=== PATIENT | male | born 1980 | race Caucasian/White ===

== ENCOUNTER 2017-12-06 06:23 | Emergency (ER) | payer BC ==
[2017-12-06] MEDS ORDERED: 0.9 % SODIUM CHLORIDE 1,000 ML IV SCH (07:00)
[2017-12-06 07:13] LABS: eGFR (Non-African) > 60
[2017-12-06] MEDS ORDERED: 0.9 % SODIUM CHLORIDE 1,000 ML IV ONE (07:15)
[2017-12-06] MEDS ORDERED: DIPH,PERTUSS(ACELL),TET VAC/PF 0.5 ML DISP.SYRIN IM ONE (07:26)
--- NOTE | 2017-12-06 08:08 | ED Physician Documentation ---
Head Injury - HISTORIAN Historian: patient - HPI Stated Complaint: Seizure with fall and head laceration Chief Complaint: Head Injury Additional Information: Known seizure patient who has a seizure while at work, struck his head s ustaining lacerations. Does not remember incident. Onset: just prior to arrival Where: work Timing: still present Context: fall Severity: moderate Loss of Consciousness: dazed - ROS CONST: no problems CVS/RESP: none EYES/ENT: none MS/SKIN/LYMPH: denies: weakness, numbness, neck pain, back pain GI/: denies: nausea, vomiting, abdominal pain, problems urinating - PAST HX Past History: other (seizure disorder, hypothyroidism) Immunizations: tetanus Allergies/Adverse Reactions: Allergies Allergy/AdvReac Type Severity Reaction Status Date / Time No Known Allergies Allergy Unverified 12/06/17 07:00 Home Medications: Ambulatory Orders Medication Instructions Recorded Levetiracetam [Keppra] 750 mg PO BID 12/06/17 Levothyroxine Sodium [Synthroid] 75 mcg PO DAILY 12/06/17 - SOCIAL HX Smoking History: non-smoker Alcohol Use: none Drug Use: none - FAMILY HX Family History: no significant history - VITAL SIGNS Vital Signs: Vital Signs Temp Pulse Resp BP Pulse Ox 97.6 F 100 H 16 138/76 96 12/06/17 06:25 12/06/17 06:25 12/06/17 06:25 12/06/17 06:25 12/06/17 06:25 - REVIEWED ASSESSMENTS Nursing Assessment Reviewed: Yes Vitals Reviewed: Yes Procedures Wound Location: head Wound Length: 3.5 cm and 1.5 cm respectively Wound's Depth, Shape: into muscle, linear Wound Explored: clean Betadine Prep?: No (cleaned with H2O2, sure clens) Anesthesia: Other (none) Wound Debrided: hair shaved Wound Repaired With: aniya (5 and 2 respectively) Progress - Results/Orders Results/Orders: cbc, cmp, ua, uds, etoh, pt/ptt/inr ordered - Progress Progress: Pt. has excellent assisted memory. Short term memory and mathematical skills slightly impaired immediately after seizure which improves with time. Critical Care Note - Critical Care Note Total Time (mins): 0 ED Results Lab/Radiology - Lab Results Lab Results: Lab Results 12/06/17 12/06/17 12/06/17 Unknown Unknown Unknown WBC Comment 8.63 thou/uL thou/uL (4.00-12.00) RBC 4.70 mil/uL mil/uL (3.80-5.80) Hemoglobin (Send Out) 13.6 g/dL g/dL (12.0-18.0) Hct (Send Out) 40.8 % % (37.0-53.0) MCV (Send Out) 86.9 fL fL (80.0-100.0) MCH 28.9 pg pg (28.0-34.0) MCHC (Send Out) 33.3 g/dL g/dL (30.0-36.0) RDW Coeff of Diego 12.6 % % (11.3-14.7) Plt Count 398 thou/uL thou/uL (130-400) Absolute Lymphs (auto) 1.86 thou/uL thou/uL (0.60-4.00) Absolute Monos (auto) 0.47 thou/uL thou/uL (0.00-0.90) Absolute Basos (auto) 0.06 thou/uL thou/uL (0.00-0.50) Neutrophils % 67.4 % % (39.0-79.0) Absolute Neutrophils 5.82 thou/uL thou/uL (1.50-7.70) Lymphocytes 21.6 % % (16.0-50.0) Monocytes 5.4 % % (0.0-11.0) Absolute Eosinophils 0.42 thou/uL thou/uL (0.00-0.60) Basophilia % 0.7 % % (0.0-1.5) Eosinophil Count 4.9 % % (0.0-6.8) PT INR APTT Sodium Potassium Chloride Carbon Dioxide BUN Creatinine Estimated Creat Clear Est GFR ( Amer) Est GFR (Non-Af Amer) Glucose Calcium Total Bilirubin AST ALT Alkaline Phosphatase Total Protein Albumin Urine Color Urine Appearance Urine pH Ur Specific [place] Urine Protein Urine Ketones Urine Occult Blood Urine Nitrite Urine Bilirubin Urine Urobilinogen Ur Leukocyte Esterase Urine Glucose Opiates Screen Negative ng/mL ng/mL (<300) Oxycodone Screen Negative ng/mL ng/mL (<100) Methadone Screen Negative ng/mL ng/mL (<200) Ur Barbiturates Screen Negative ng.mL ng.mL (<200) Tricyclic Antidepress Negative ng/mL ng/mL (<300) Phencyclidine Screen Negative ng/mL ng/mL (< 25) Amphetamines Screen Negative ng/mL ng/mL (<500) U Methamphetamines Scrn Negative ng/mL ng/mL (<500) MDMA Negative ng/mL ng/mL (<500) Benzodiazepines Screen Negative ng/mL ng/mL (<150) Urine Cocaine Screen Negative ng/mL ng/mL (<150) U Cannabinoids Screen Negative ng/mL ng/mL (< 50) Ethyl Alcohol < 10.0 mg/dL mg/dL (0.0-10.0) 12/06/17 12/06/17 12/06/17 Unknown Unknown 07:50 WBC Comment RBC Hemoglobin (Send Out) Hct (Send Out) MCV (Send Out) MCH MCHC (Send Out) RDW Coeff of Diego Plt Count Absolute Lymphs (auto) Absolute Monos (auto) Absolute Basos (auto) Neutrophils % Absolute Neutrophils Lymphocytes Monocytes Absolute Eosinophils Basophilia % Eosinophil Count PT 10.7 Seconds Seconds (9.4-11.6) INR 1.02 (0.9-1.2) APTT 26.3 Seconds Seconds (24.5-32.8) Sodium 135 mmol/L L mmol/L (136-145) Potassium 4.1 mmol/L mmol/L (3.5-5.1) Chloride 97 mmol/L L mmol/L (98-107) Carbon Dioxide 27 mmol/L mmol/L (22-30) BUN 11 mg/dL mg/dL (9-20) Creatinine 0.80 mg/dL mg/dL (0.66-1.25) Estimated Creat Clear 146 Est GFR ( Amer) > 60 (60 - ) Est GFR (Non-Af Amer) > 60 (60 - ) Glucose 96 mg/dL mg/dL (74-106) Calcium 8.4 mg/dL mg/dL (8.4-10.2) Total Bilirubin 0.4 mg/dL mg/dL (0.2-1.3) AST 33 U/L U/L (15-46) ALT 60 U/L U/L (13-69) Alkaline Phosphatase 135 U/L H U/L (38-126) Total Protein 7.2 g/dL g/dL (6.3-8.2) Albumin 3.9 g/dL g/dL (3.5-5.0) Urine Color Yellow (YELLOW) Urine Appearance Clear (CLEAR) Urine pH 7.0 (5.0 - 8.0) Ur Specific [place] 1.020 (1.010-1.030) Urine Protein Negative mg/dL mg/dL (NEGATIVE) Urine Ketones Negative mg/dL mg/dL (NEGATIVE) Urine Occult Blood Negative (NEGATIVE) Urine Nitrite Negative (NEGATIVE) Urine Bilirubin Negative (NEGATIVE) Urine Urobilinogen 0.2 Eu Eu (0.2-1.0) Ur Leukocyte Esterase Negative (NEGATIVE) Urine Glucose Negative mg/dL mg/dL (NEGATIVE) Opiates Screen Oxycodone Screen Methadone Screen Ur Barbiturates Screen Tricyclic Antidepress Phencyclidine Screen Amphetamines Screen U Methamphetamines Scrn MDMA Benzodiazepines Screen Urine Cocaine Screen U Cannabinoids Screen Ethyl Alcohol - Radiology Radiology Impressions: ct head and cervical spine neg for karina abnormalty - Orders Orders: ED Orders Category Date Time Status Place IV Lock 1T Care 12/06/17 06:[address] BRAIN W/O CONTRAST Stat Exams 12/06/[address] C-SPINE W/O CONTRAST Stat Exams 12/06/17 Taken ALCOHOL MEDICAL USE ONLY Stat Lab 12/06/17 Completed CBC REF Stat Lab 12/06/17 Completed CMP Stat Lab 12/06/17 Completed DRUG SCREEN URINE MEDICAL ONLY Routine Lab 12/06/17 Completed LEVETIRACETAM(KEPPRA) LEVEL Routine Lab 12/06/17 Received PT-INR Stat Lab 12/06/17 Completed PTT Stat Lab 12/06/17 Completed UA MACRO DIP ONLY Stat Lab 12/06/17 07:50 Completed 0.9 % Sodium Chloride [Normal Saline] 1,000 ml Med 12/06/17 07:00 Ordered IV .Q1H Diph,Pertuss(Acell),Tet Vac/Pf [Adacel] Med 12/06/17 07:26 Discontinued 0.5 ml IM .ONCE ONE Head Injury Physical Exam - Physical Exam General Appearance: alert, mild distress Head: trauma (to occipital area). No: raccoon eyes, Acosta's sign Neck: non-tender, painless ROM, trachea midline Nexus Criteria: Nexus criteria neg Eyes: PALAK, EOMI, lids & conjunct. nml ENT: nml external inspection, pharynx nml Neuro: alert, cooperative, interactive, mood/affect nml, other (oriented to person). No: seizing Cranial: nml as tested, no evidence of acute CVA. No: facial droop, hearing deficit, tongue deviation to right, tongue deviation to left, dysarthria, fast component to left, fast component to right, facial palsy, sensory deficit, numbness Cerebellar: nml as tested Sensorimotor: motor nml, sensation nml, DTR's nml. No: weakness, hemiparesis, hemiplegia Resp/CVS: chest non-tender, breath sounds nml, heart sounds nml, no resp. distress, lungs clear, reg. rate & rhythm Abdomen: non-tender, no organomegaly, nml bowel sounds Back: non-tender, painless ROM. No: vertebral point-tendernes, CVA tenderness Skin: warm/dry, other (2 linear lacerations occipital portion of scalp, 1.5 cm and 3.5 cm) Extremities: atraumatic, nml ROM, gait nml - Keshav Coma Score Coma Scale Eye Opening: Spontaneous Coma Scale Verbal: Oriented Coma Scale Motor: Obeys Commands Discharge Clincal Impression: Seizure Scalp laceration Qualifiers: Encounter type: initial encounter Qualified Code(s): S01.01XA - Laceration without foreign body of scalp, initial encounter Referrals: Primary Doctor,No [Primary Care Provider] - 2 Days Comments: Discharge pt. home with Tylenol PRN pain, rest, follow up with neurologist, wound care to incluse soap and water clean daily and ELIER to staple site bid, aniya out in 10 days Condition: Stable Disposition: 01 HOME, SELF-CARE Decision to Admit: NO Decision Time: 09:30
[2017-12-06 08:21] LABS: BASO % 0.7 % (0.0-1.5); EOS % 4.9 % (0.0-6.8); LYMPH ABS # 1.86 thou/uL (0.60-4.00); MCH. 28.9 pg (28.0-34.0); MCV 86.9 fL (80.0-100.0); MONOCYTE % 5.4 % (0.0-11.0); MONOCYTE ABS # 0.47 thou/uL (0.00-0.90); PLATELET COUNT 398 thou/uL (130-400)
[2017-12-06 09:11] LABS: CANNABINOIDS NEGATIVE ng/mL (< 50); METHYLENEDIOXYMETHAMPHETAMINE NEGATIVE ng/mL (<500)
[2017-12-06 09:14] LABS: APPEARANCE,URINE CLEAR (CLEAR); COLOR,URINE YELLOW (YELLOW); OCCULT BLOOD,URINE NEGATIVE (NEGATIVE); UROBILINOGEN URINE 0.2 Eu (0.2-1.0)
[2017-12-06 10:13] VITALS: BP 115/66
--- NOTE | 2017-12-06 21:38 | Diagnostic Imaging Report ---
WILIAN MADERA [facility] [id number] [facility] [address] [place], [place]. [address] Report Submission Date: Dec 06, 2017 11:09:26 AM CDT Patient Study Name: SHENG ELLIS Date: Dec 06, 2017 10:48:04 AM CDT Modality Type: CT Gender: M Description: CT BRAIN W/O CONTRAST : 80 Institution: [facility] Physician: WILIAN MADERA Head CT without contrast History: Seizure and fall Technique: Axial images were obtained from the skullbase to the vertex without IV contrast. Findings: The ventricular system is normal in size and configuration. There is no positive mass effect or intra/extra-axial hemorrhage. However, there is generalized soft tissue swelling with associated soft tissue air involving the left parietal scalp consistent with scalp contusion and laceration. The adjacent calvarium is intact. Paranasal sinuses and mastoid air cells are clear. Impression: There is soft tissue swelling and soft tissue air of the left parietal scalp consistent with soft tissue contusion and laceration in this patient who is status post fall. No intracranial abnormality. Electronically signed on Dec 06, 2017 11:09:26 AM CDT by: Arabella DIAMOND
--- NOTE | 2017-12-06 21:39 | Diagnostic Imaging Report ---
WILIAN MADERA [facility] [id number] [facility] [address] [place], [place]. [address] Report Submission Date: Dec 06, 2017 11:13:39 AM CDT Patient Study Name: SHENG ELLIS Date: Dec 06, 2017 10:50:05 AM CDT Modality Type: CT Gender: M Description: CT C-SPINE W/O CONTRAS : 80 Institution: [facility] Physician: WILIAN MADERA CT cervical spine History: Status post seizure. Status post fall Technique: Helically acquired images were obtained through the cervical spine. Sagittal and coronal reconstructions were performed. Findings: The dens is intact. The lateral masses of C1 and 2 are aligned. Vertebral body height and intervertebral disc space height is maintained. There is no evidence for acute fracture or dislocation. The central canal is widely patent. There is abnormal patchy parenchymal density at the lung apices, nonspecific but possibly indicating pneumonia. Impression: No evidence for acute fracture or dislocation of the cervical spine. At the visualized lung apices, there is abnormal patchy parenchymal density which is nonspecific but could indicate pneumonia. Consider chest radiograph. Electronically signed on Dec 06, 2017 11:13:39 AM CDT by: Arabella DIAMOND
== END 2017-12-06 09:52 | disposition home or self-care (01) ==
LOC: ED 06:23
DX: S01.01XA Laceration without foreign body of scalp, initial encounter (principal); W19.XXXA Unspecified fall, initial encounter; Y92.9 Unspecified place or not applicable; Y93.9 Activity, unspecified; Y99.9 Unspecified external cause status; G40.909 Epilepsy, unspecified, not intractable, without status epilepticus
CPT/HCPCS: 70450; 72125; 80053; 80177; 80320; 80377; 81002; 85025; 85610; 85730; 90715; J7030; 12002; 90471; 96365; G0480; G0481

== ENCOUNTER 2017-12-06 10:21 | Inpatient (IN) | payer BC ==
[2017-12-06] MEDS ORDERED: LORazepam 2 MG/ML VIAL IVP ONE (10:31)
[2017-12-06] MEDS ORDERED: ONDANSETRON HCL/PF 4 MG/ 2ML VIAL IVP ONE (12:14)
[2017-12-06] MEDS: 0.9 % SODIUM CHLORIDE 1,000 ML IV SCH ×3 (13:38→23:33)
--- NOTE | 2017-12-06 14:25 | History and Physical Report ---
History of Present Illnes - History of Present Illness Reason for Visit: seizures History of Present Illness: Patient is a 37-year-old white male with a known seizure history since 18 years of age. Patient stated usually he'll have 1 to 2 seizures a year or even less than that. Patient has gone three years without any seizures at one time. Patient was working today when he had a seizure fell down and sustained some laceration to his scalp. Patient was seen in the ED had scalp lacerations s tapled. Patient was subsequently released. Patient then went back to work and had a another seizure and return to the ED and was subsequently admitted for further evaluation. Patient stated he had skipped 1 to 2 doses of his anticonvulsants yesterday. Patient is also been tired and had not had as much sleep as he feels that he needs. Patient does complain of a mild headache associated with head trauma. Patient has had two CT scans did not show any specific abnormalities. Patient denies any visual acuity changes. Patient denies any focal no sensory or neuromotor deficit. - Past Medical History [employer]: Seizure Endocrine: Hypothyroidism - Past Surgical History Past Surgical History: None - Past Social History Smoke: No Alcohol: None Lives: With Family Domestic Violence: Negative - Health Maintenance Health Maintenance: Tetanus (today -06 DEC 2017). denies: Influenza Vaccine, Pneumococcal Vaccine Influenza Vaccine: No Pneumonia Vaccine: No Resuscitation Status: Resusciation Status Resuscitation Status Full Code - Unable to Obtain History Unable to Obtain: No Review of Systems - Review of Systems Constitutional: Weakness (postictal). negative: Fever, Chills, Sweats Eyes: negative: pain, vision change ENT: negative: Ear Pain, Nose Pain, Nose Discharge, Nose Congestion, Mouth Pain, Mouth Swelling, Throat Pain Respiratory: negative: Cough, Shortness of Breath, Hemoptysis, SOB with Excertion, Pleuritic Pain, Wheezing Cardiovascular: negative: Chest Pain, Palpitations, Orthopnea, Paroxysmal Noc. Dyspnea, Edema, Light Headedness Gastrointestinal: negative: Nausea, Vomiting, Abdominal Pain, Diarrhea, Constipation, Melena, Hematochezia Genitourinary: Deferred. negative: Dysuria, Frequency, Incontinence, Hematuria Musculoskeletal: negative: Neck Pain, Shoulder Pain, Back Pain, Hand Pain, Leg Pain Skin: negative: Rash Neurological: Confusion (mild postictal), Seizures. negative: Weakness, Numbness, Incoordination, Change in Speech - Medications/Allergies Allergies/Adverse Reactions: Allergies Allergy/AdvReac Type Severity Reaction Status Date / Time No Known Allergies Allergy Verified 12/06/17 11:13 Current Inpatient Medications: Current Inpatient Medications Enoxaparin Sodium (Lovenox) 30 mg SQ QD [facility] Stop: 12/19/17 15:01 Sodium Chloride (Normal Saline) 1,000 mls @ 125 mls/hr IV Q8H [facility] Last Admin: 12/06/17 13:38 Dose: 125 mls/hr Levetiracetam (Keppra) 500 mg PO TID [facility] Levothyroxine Sodium (Synthroid) 75 mcg PO 0700 [facility] Exam - Exam Vital Signs: Vital Signs (72 hours) 12/06/17 12/06/17 12/06/17 09:52 10:21 11:26 Pulse Rate 66 Pulse Rate [ 77 Left Pulse ox] Respiratory 16 Rate Blood Pressure 115/66 Blood Pressure 115/66 107/50 [Left Arm] O2 Sat by Pulse 94 96 Oximetry 12/06/17 13:26 Pulse Rate 62 Pulse Rate [ Left Pulse ox] Respiratory Rate Blood Pressure Blood Pressure [Left Arm] O2 Sat by Pulse 95 Oximetry General: Alert, Oriented to Person, Oriented to Place, Oriented to Time, Cooperative, No acute distress HEENT: Atraumatic, PERRLA, EOMI, Mouth Mucous membr. moist/[place], Nose Mucous membr. moist/[place], Dentition Normal Neck: Normal Range of Motion Carotids: WNL Thyroid: WNL Lungs: Clear to auscultation, Normal air movement, Speaks full Sentences. No: Respiratory Distress, Wheezes, Rales, Rhonchi Cardiovascular: Regular rate, Normal S1, Normal S2, No murmurs Abdomen: Normal bowel sounds, Soft, No tenderness, No hepatospenomegaly, No masses Integumentary: Normal, [place], Warm, Dry, Jaundiced Extremities: No clubbing, No cyanosis, No edema, Normal pulses, No tenderness/swelling Neurological: Normal gait, Normal speech, Strength Equal Bilat, Normal tone, Sensation intact, Cranial nerves 3-12 NL, Reflexes 2+ Psych/Mental Status: Mental status NL, Mood NL, Appropriate Affect, Intact Judgment Assessment/Plan - Assessment/Plan (1) Seizure disorder Status: Acute Current Visit: Yes Assessment: continue with present anticonvulsants , monitor for further seizures (2) Hypothyroidism Status: Acute Current Visit: Yes Qualifiers: Hypothyroidism type: unspecified Qualified Code(s): E03.9 - Hypothyroidism, unspecified Assessment: Continue current levothyroxine dose. (3) Scalp laceration Status: Acute Current Visit: No Qualifiers: Encounter type: initial encounter Qualified Code(s): S01.01XA - Laceration without foreign body of scalp, initial encounter Assessment: clsoed with aniya VTE Assessment - RISK FACTOR SCORE VTE RISK FACTOR SCORES: ANTICIPATED BED CONFINEMENT OR IMMOBILIZATION > 24 HOURS - RISK VTE LOW RISK: SCORE OF 1 OR LESS (RISK PROXIMAL DVT 0.4%) NO PROPHYLAXIS NEEDED
[2017-12-06] MEDS ORDERED: LORazepam 2 MG/ML VIAL IVP PRN (14:26)
[2017-12-06] MEDS ORDERED: ENOXAPARIN SODIUM 30 MG/0.3 ML DISP.SYRIN SQ SCH (15:00)
[2017-12-06 15:05] VITALS: BMI 28.3
--- NOTE | 2017-12-06 16:02 | ED Physician Documentation ---
Seizure - HISTORIAN Historian: patient, spouse - HPI Stated Complaint: s/p siezure with fall (has occurred once today and seen in ER) Chief Complaint: Seizure Additional Information: Pt. just released from ER for seizure and head injury. Returned to work to turn in paperwork and had another seizure and fell again re-injuring head. Timing/Onset/Duration: single episode Last known Well Date: 12/06/17 Last Known Well Time: 05:00 Last known Well Code/Unknown Code: Unknown Witnessed By: bystander Preceding Symptoms: missed seizure meds (yesterday), other (stress) Activity Prior to Seizure: post ictal from first seizure Character of Seizure(s): unresponsiveness, "shaking all over". denies: incontinence of urine, incontinence of stool Postictal Symptoms: other (fatigued) Location of Injury: head Further Comments: no - ROS NEURO/PSYCH: headache EYES/ENT: none CVS/RESP: none GI/: denies: adominal pain, nausea, vomiting, diarrhea, black stools, problems urinating MS/SKIN/LYMPH: other (head pain n area of injury) - PAST HX Previous seizure/seizure disorder: long-standing Etiology: idiopathic Other History: other (hypothyroidism) Surgeries/Procedures: none Immunizations: referred to PCP Allergies/Adverse Reactions: Allergies Allergy/AdvReac Type Severity Reaction Status Date / Time No Known Allergies Allergy Verified 12/06/17 11:13 Home Medications: Ambulatory Orders Medication Instructions Recorded Levetiracetam [Keppra] 750 mg PO BID 12/06/17 Levothyroxine Sodium [Synthroid] 75 mcg PO DAILY 12/06/17 - SOCIAL HX Smoking History: other (unknown) Alcohol Use: other (unknown) Drug Use: other (unknwn) - FAMILY HX Family History: none - VITAL SIGNS Vital Signs: Vital Signs Temp Pulse Resp BP Pulse Ox 99.4 F 75 16 117/49 95 12/06/17 13:14 12/06/17 15:28 12/06/17 13:14 12/06/17 13:14 12/06/17 13:26 - REVIEWED ASSESSMENTS Nursing Assessment Reviewed: Yes Vitals Reviewed: Yes Progress - Results/Orders Results/Orders: ct head, ct c-spine ordered - Progress Progress: pt. stablized in ER, lacerations stapled, given 1 mg ativan ivp and NS at 125 cc/hr Critical Care Note - Critical Care Note Total Time (mins): 0 ED Results Lab/Radiology - Lab Results Lab Results: see labs from earlier this morning - Radiology Radiology Impressions: ct brain and c-spine neg - Orders Orders: ED Orders Category Date Time Status Continuous EKG monitoring Q1H Care 12/06/17 11:26 Active Continuous Pulse Oximetry Q1H Care 12/06/17 11:[address] IV Lock 1T Care 12/06/17 10:[address] BRAIN W/O CONTRAST Stat Exams 12/06/[address] C-SPINE W/O CONTRAST Stat Exams 12/06/17 Taken 0.9 % Sodium Chloride [Normal Saline] 1,000 ml Med 12/06/17 11:00 Active IV Q8H LORazepam [Ativan] Med 12/06/17 10:31 Discontinued 1 mg IVP NOW ONE Ondansetron HCl/Pf [Zofran 4 mg/2 ml] Med 12/06/17 12:14 Discontinued 8 mg IVP NOW ONE Seizure Physical Exam - Physical Exam General Appearance: post ictal Altered Mental Status Higher Functions: no evidence of acute CVA, disoriented EENT: nml eye inspection, PERRL. No: Acosta's sign Neck/Back: normal inspection, supple Respiratory: no resp. distress, breath sounds nml CVS: reg rate & rhythm, heart sounds normal, equal pulses Abdomen: non-tender, no organomegaly, nml bowel sounds Skin: other (same lacerations from this morning only aniya dislodged and bleeding) Extremities: normal range of motion, non-tender, normal inspection Observed Seizure Activity in ED: generalized - Nexus Criteria Neg Nexus Criteria: Nexus criteria neg Discharge Clincal Impression: Seizure disorder Comments: Qualifies for acute admission by interqual criteria: known seizure disorder on anticonvulsant which level not available at this time and pt. claims to be adherent with drug schedule, pt. has had 2 seizures this morning and a change in status from baseline, intervention includes change in anticonvulsant dose, neuro checks q 4 hours and seizure precautions. Case discussed with Dr. Renee who accepts admission. Condition: Stable Disposition: ADMITTED INPATIENT Decision to Admit: [id number] Decision Time: 11:05
[2017-12-06] MEDS: levETIRAcetam 500 MG TABLET PO SCH (18:15)
[2017-12-06] MEDS ORDERED: ACETAMINOPHEN 500 MG TABLET PO PRN (18:29)
[2017-12-06] MEDS ORDERED: IBUPROFEN 400 MG TABLET PO PRN ×3 (21:00→21:20)
[2017-12-06] MEDS ORDERED: IBUPROFEN 200 MG TABLET PO ONE (21:02)
[2017-12-06] MEDS ORDERED: IBUPROFEN 200 MG TABLET PO PRN (21:06)
[2017-12-06] MEDS ORDERED: IBUPROFEN 400 MG TABLET PO ONE (21:10)
--- NOTE | 2017-12-06 21:44 | Diagnostic Imaging Report ---
WILIAN MADERA [facility] [place] [facility] [id number] [facility] [address] [place], [place]. [address] Report Submission Date: Dec 06, 2017 11:09:26 AM CDT Patient Study Name: SHENG ELLIS Date: Dec 06, 2017 10:48:04 AM CDT Modality Type: CT Gender: M Description: CT BRAIN W/O CONTRAST : 80 Institution: [facility] [place] [facility] Physician: WILIAN MADERA Head CT without contrast History: Seizure and fall Technique: Axial images were obtained from the skullbase to the vertex without IV contrast. Findings: The ventricular system is normal in size and configuration. There is no positive mass effect or intra/extra-axial hemorrhage. However, there is generalized soft tissue swelling with associated soft tissue air involving the left parietal scalp consistent with scalp contusion and laceration. The adjacent calvarium is intact. Paranasal sinuses and mastoid air cells are clear. Impression: There is soft tissue swelling and soft tissue air of the left parietal scalp consistent with soft tissue contusion and laceration in this patient who is status post fall. No intracranial abnormality. Electronically signed on Dec 06, 2017 11:09:26 AM CDT by: Arabella DIAMOND
--- NOTE | 2017-12-06 21:48 | Diagnostic Imaging Report ---
WILIAN MADERA [facility] [address] [facility] [address] [place], [place]. [address] Report Submission Date: Dec 06, 2017 11:13:39 AM CDT Patient Study Name: SHENG ELLIS Date: Dec 06, 2017 10:50:05 AM CDT Modality Type: CT Gender: M Description: CT C-SPINE W/O CONTRAS : 80 Institution: [facility] Physician: WILIAN MADERA CT cervical spine History: Status post seizure. Status post fall Technique: Helically acquired images were obtained through the cervical spine. Sagittal and coronal reconstructions were performed. Findings: The dens is intact. The lateral masses of C1 and 2 are aligned. Vertebral body height and intervertebral disc space height is maintained. There is no evidence for acute fracture or dislocation. The central canal is widely patent. There is abnormal patchy parenchymal density at the lung apices, nonspecific but possibly indicating pneumonia. Impression: No evidence for acute fracture or dislocation of the cervical spine. At the visualized lung apices, there is abnormal patchy parenchymal density which is nonspecific but could indicate pneumonia. Consider chest radiograph. Electronically signed on Dec 06, 2017 11:13:39 AM CDT by: Arabella DIAMOND
[2017-12-07 02:07] LABS: eGFR (Non-African) > 60
[2017-12-07 03:31] LABS: BASO % 0.3 % (0.0-1.5); EOS % 0.2 % (0.0-6.8); LYMPH ABS # 1.32 thou/uL (0.60-4.00); MCV 87.1 fL (80.0-100.0); MONOCYTE % 5.1 % (0.0-11.0); MONOCYTE ABS # 0.59 thou/uL (0.00-0.90); PLATELET COUNT 325 thou/uL (130-400)
[2017-12-07] MEDS ORDERED: LEVOTHYROXINE SODIUM 25 MCG TABLET PO SCH (07:00)
[2017-12-07] MEDS: levETIRAcetam 500 MG TABLET PO SCH ×2 (08:58→12:51)
[2017-12-07] MEDS ORDERED: ACETAMINOPHEN 500 MG TABLET ONE (11:12)
--- NOTE | 2017-12-07 11:54 | Discharge Summary ---
Discharge Summary - Discharge Sumary History of Present Illness: Patient is a 37-year-old white male with a known seizure history since 18 years of age. Patient stated usually he'll have 1 to 2 seizures a year or even less than that. Patient has gone three years without any seizures at one time. Patient was working today when he had a seizure fell down and sustained some laceration to his scalp. Patient was seen in the ED had scalp lacerations stapled. Patient was subsequently released. Patient then went back to work and had a another seizure and return to the ED and was subsequently admitted for further evaluation. Patient stated he had skipped 1 to 2 doses of his anticonvulsants yesterday. Patient is also been tired and had not had as much sleep as he feels that he needs. Patient does complain of a mild headache associated with head trauma. Patient has had two CT scans did not show any specific abnormalities. Patient denies any visual acuity changes. Patient denies any focal no sensory or neuromotor deficit. Home Medications: Ambulatory Orders Medication Instructions Recorded Levetiracetam [Keppra] 750 mg PO BID 12/06/17 Levothyroxine Sodium [Synthroid] 75 mcg PO DAILY 12/06/17 Allergies/Adverse Reactions: Allergies Allergy/AdvReac Type Severity Reaction Status Date / Time No Known Allergies Allergy Verified 12/06/17 11:13 Patient Problems: Current Active Problems Problem Status Onset Hypothyroidism Acute Seizure disorder Acute Discharge Summary: Patient did remain mildly lethargic after his second seizure. Patient however was appointed time the. Cranial nerves and neuromuscular and neurosensory remained normal and intact. Patient did complain of a mild headache that was treated with ibuprofen. At the time of dismissal patient stated he felt that he was back to his baseline. Patient was advised not to drive six months. Patient will follow up with his primary care patient about having the stable had removed in seven days. - Final Diagnosis (1) Seizure disorder Problems: stable no further seizures during hospitaliztion (2) Hypothyroidism Problems: stable on home meds (3) Scalp laceration Problems: closed, stable
[2017-12-07 13:55] VITALS: BP 132/67
== END 2017-12-07 14:55 | disposition home or self-care (01) | DRG 101 ==
LOC: ED 10:21 → SOUTH 13:09
PROVIDERS: ADMIT Family Medicine; ATTEND Family Medicine
DX: G40.909 Epilepsy, unspecified, not intractable, without status epilepticus (principal); S01.01XA Laceration without foreign body of scalp, initial encounter; E03.9 Hypothyroidism, unspecified; W19.XXXA Unspecified fall, initial encounter; Y93.89 Activity, other specified; Y92.9 Unspecified place or not applicable
CPT/HCPCS: 70450; 72125; 80053; 85025; J1650; J2060; J2405; J7030; 12002; 96365; 96375; 99222; 99238

== ENCOUNTER 2018-05-30 13:14 | Emergency (ER) | payer BC ==
--- NOTE | 2018-05-30 13:28 | ED Physician Documentation ---
Seizure - HISTORIAN Historian: patient - HPI Stated Complaint: seizure and fall from standing position Chief Complaint: Seizure Timing/Onset/Duration: unknown duration, single episode, details cant be obtained, details cant be verified Last known Well Date: 05/30/18 Last Known Well Time: 12:30 Last known Well Code/Unknown Code: Known Witnessed By: other (co worker ) Preceding Symptoms: none Character of Seizure(s): lost consciousness, "shaking all over" Postictal Symptoms: confusion Location of Injury: head, face Further Comments: yes (he is not sure of what happened. Per EMS he was standing at work and fell having a seizure. The report injury to face (over right eye) and nose from broken glasses. No other complaints. Pt states he does take seizure meds and he did take that med today. Denies any other pain.) - ROS NEURO/PSYCH: headache EYES/ENT: none CVS/RESP: none MS/SKIN/LYMPH: none - PAST HX Previous seizure/seizure disorder: occasional Immunizations: UTD Allergies/Adverse Reactions: Allergies Allergy/AdvReac Type Severity Reaction Status Date / Time No Known Allergies Allergy Verified 05/30/18 13:27 Home Medications: Ambulatory Orders Medication Instructions Recorded Levetiracetam [Keppra] 750 mg PO BID 12/06/17 Levothyroxine Sodium [Synthroid] 75 mcg PO DAILY 12/06/17 - SOCIAL HX Smoking History: non-smoker Alcohol Use: none Drug Use: none - FAMILY HX Family History: none - VITAL SIGNS Vital Signs: Vital Signs Temp Pulse Resp BP Pulse Ox 99.3 F 74 14 134/54 96 05/30/18 13:16 05/30/18 16:00 05/30/18 16:00 05/30/18 16:00 05/30/18 16:00 - REVIEWED ASSESSMENTS Nursing Assessment Reviewed: Yes Vitals Reviewed: Yes Progress - Progress Progress: 1425: in bed in exam room on phone. No complaints DG ED Results Lab/Radiology - Lab Results Lab Results: Lab Results 05/30/18 05/30/18 05/30/18 13:35 13:19 13:19 WBC 8.50 K/ul K/ul (4.00-12.00) RBC 4.75 M/ul M/ul (3.90-5.20) Hgb 14.0 g/dL g/dL (12.0-18.0) Hct 41.7 % % (37.0-53.0) MCV 88.0 fl fl (80.0-100.0) MCH 29.4 pg pg (28.0-34.0) MCHC 33.5 g/dL g/dL (30.0-36.0) RDW 12.8 % % (11.3-14.3) Plt Count 333 K/mm3 K/mm3 (130-400) Neut % (Auto) 68.2 % % (39.0-79.0) Lymph % (Auto) 25.2 % % (16.0-50.0) Fajardo % (Auto) 4.4 % % (0.0-11.0) Eos % (Auto) 1.7 % % (0.0-6.8) Baso % (Auto) 0.5 (0.0-1.5) Neut # (Auto) 5.8 # k/uL # k/uL (1.4-7.7) Lymph # (Auto) 2.1 # k/uL # k/uL (0.6-4.0) Fajardo # (Auto) 0.4 # k/uL # k/uL (0.0-0.9) Eos # (Auto) 0.1 # k/uL # k/uL (0.0-0.6) Baso # (Auto) 0.0 # k/uL # k/uL (0.0-0.5) PT 11.0 Seconds Seconds (8.8-11.9) INR 1.06 (0.80-1.10) Sodium 139 mmol/L mmol/L (136-145) Potassium 3.7 mmol/L mmol/L (3.5-5.1) Chloride 100 mmol/L mmol/L (98-107) Carbon Dioxide 29 mmol/L mmol/L (22-30) BUN 13 mg/dL mg/dL (9-20) Creatinine 0.81 mg/dL mg/dL (0.66-1.25) Estimated Creat Clear 288 Est GFR ( Amer) > 60 (60 - ) Est GFR (Non-Af Amer) > 60 (60 - ) Glucose 97 mg/dL mg/dL (74-106) Calcium 8.6 mg/dL mg/dL (8.4-10.2) Total Bilirubin 0.5 mg/dL mg/dL (0.2-1.3) AST 52 U/L H U/L (15-46) ALT 41 U/L U/L (13-69) Alkaline Phosphatase 83 U/L U/L (38-126) Total Protein 6.4 g/dL g/dL (6.3-8.2) Albumin 4.0 g/dL g/dL (3.5-5.0) - Radiology Radiology Impressions: Examination: CT head without contrast History: pt fell post seizure, hx of seizures, Comparison exam: None available Technique: Noncontrast head CT protocol. Findings: Ventricles and sulci are appropriate for patient age. Cerebrocerebellar parenchyma demonstrates normal attenuation. No evidence for parenchymal hemorrhage. No evidence for mass or mass effect. No midline shift. No extra axial fluid collections. Partial visualization of the paranasal sinuses demonstrates scattered mucous thickening. Mastoid air cells, orbits, skull and scalp without gross irregularity. Streak artifact from dental hardware. Impression: No acute parenchymal process. No hemorrhage. Electronically signed on May 30, 2018 2:21:13 PM BRICK STACKER by: Navjot Reilly Examination: CT maxillofacial History: LAC AFTER SEIZURE Comparison exams: None provided Technique: Axial imaging with sagittal and coronal reconstruction Findings: Medial and inferior orbital almanza are intact. Anterior and posterior maxillary almanza are also intact. Zygomatic arches without fracture. No nasal bone abnormality. Mandibles including the mandibular condyle are without irregularity. No air fluid levels within the sinuses. Scattered mucous thickening. Remaining visualized osseous structures and soft tissue structures are without irregularity. Streak artifact from dental hardware. Impression: No orbital, nasal, mandibular or maxillary bone fractures Electronically signed on May 30, 2018 3:19:09 PM BRICK STACKER by: Navjot Reilly - Orders Orders: ED Orders Category Date Time Status Cleanse with NS and Chlorhexid 1T Care 05/30/18 15:22 Active IV Started NOW Care 05/30/18 13:[address] BRAIN W/O CONTRAST Stat Exams 05/30/18 13:[address] MAXILLOFACIAL W/O DYE Stat Exams 05/30/18 Taken CBC/PLATELET/DIFF Stat Lab 05/30/18 13:19 Completed CMP Stat Lab 05/30/18 13:19 Completed PTINR [PT-INR] Routine Lab 05/30/18 13:35 Completed 0.9 % Sodium Chloride [Normal Saline] 1,000 ml Med 05/30/18 13:19 Discontinued IV NOW Seizure Physical Exam - Physical Exam General Appearance: no acute distress, alert Altered Mental Status Higher Functions: alert, oriented x3, mood/affect nml, abnml respond to command EENT: nml eye inspection, PERRL Neck/Back: normal inspection Respiratory: no resp. distress, breath sounds nml, no evidence of rib injury CVS: reg rate & rhythm, heart sounds normal Abdomen: non-tender Skin: warm/dry, other (abrasion forehead above right eyebrow. Dry blood on right lateal side of nose - after cleaning no cuts or lacerations on face ) Extremities: normal range of motion, non-tender Observed Seizure Activity in ED: unresponsive Discharge Clincal Impression: Seizure Referrals: Primary Doctor,No [Primary Care Provider] - 2 Days Comments: 1. continue home meds 2. Keep areas clean and dry 3. Follow up with PCP in 2-4 days 4. Return to ER for any concerns Condition: Stable Disposition: 01 HOME, SELF-CARE Decision to Admit: NO Date of Decison to Admit: 05/30/18 Decision Time: 15:25
[2018-05-30] MEDS: 0.9 % SODIUM CHLORIDE 1,000 ML IV ONE (13:40)
[2018-05-30 13:57] LABS: MEAN CORPUSCULAR HEMOGLOBIN 29.4 pg (28.0-34.0)
[2018-05-30 13:58] LABS: BASOPHILS % 0.5 (0.0-1.5); EOSINOPHILS % 1.7 % (0.0-6.8); MONOCYTES % 4.4 % (0.0-11.0); NEUTROPHILS # 5.8 # k/uL (1.4-7.7)
[2018-05-30 14:04] LABS: eGFR (Non-African) > 60
[2018-05-30 17:43] VITALS: BP 134/54
--- NOTE | 2018-05-31 05:25 | Diagnostic Imaging Report ---
TAY FERNANDEZ [facility] [address] [facility] [address] [place], [place]. [address] Report Submission Date: May 30, 2018 2:21:13 PM SUPERVISOR MIXING Patient Study Name: SHENG ELLIS Date: May 30, 2018 1:55:00 PM SUPERVISOR MIXING Modality Type: CT\SR Gender: M Description: CT BRAIN W/O CONTRAST : 80 Institution: [facility] Physician: TAY FERNANDEZ Examination: CT head without contrast History: pt fell post seizure, hx of seizures, Comparison exam: None available Technique: Noncontrast head CT protocol. Findings: Ventricles and sulci are appropriate for patient age. Cerebrocerebellar parenchyma demonstrates normal attenuation. No evidence for parenchymal hemorrhage. No evidence for mass or mass effect. No midline shift. No extra axial fluid collections. Partial visualization of the paranasal sinuses demonstrates scattered mucous thickening. Mastoid air cells, orbits, skull and scalp without gross irregularity. Streak artifact from dental hardware. Impression: No acute parenchymal process. No hemorrhage. Electronically signed on May 30, 2018 2:21:13 PM SUPERVISOR MIXING by: Navjot DIAMOND
--- NOTE | 2018-05-31 05:25 | Diagnostic Imaging Report ---
TAY FERNANDEZ [facility] [address] [facility] [address] [address] Report Submission Date: May 30, 2018 3:19:09 PM ALUMINUM BOAT ASSEMBLY SUPERVISOR Patient Study Name: SHENG ELLIS Date: May 30, 2018 1:55:00 PM ALUMINUM [employer]AT ASSEMBLY SUPERVISOR Modality Type: CT Gender: M Description: MAXILLOFACIAL WITH ORBITS : 80 Institution: [facility] Physician: TAY FERNANDEZ Examination: CT maxillofacial History: LAC AFTER SEIZURE Comparison exams: None provided Technique: Axial imaging with sagittal and coronal reconstruction Findings: Medial and inferior orbital almanza are intact. Anterior and posterior maxillary almanza are also intact. Zygomatic arches without fracture. No nasal bone abnormality. Mandibles including the mandibular condyle are without irregularity. No air fluid levels within the sinuses. Scattered mucous thickening. Remaining visualized osseous structures and soft tissue structures are without irregularity. Streak artifact from dental hardware. Impression: No orbital, nasal, mandibular or maxillary bone fractures Electronically signed on May 30, 2018 3:19:09 PM ALUMINUM BOAT ASSEMBLY SUPERVISOR by: Navjot DIAMOND
== END 2018-05-30 16:30 | disposition home or self-care (01) ==
LOC: ED 13:14
DX: G40.89 Other seizures (principal); S00.81XA Abrasion of other part of head, initial encounter; W18.30XA Fall on same level, unspecified, initial encounter; Y93.9 Activity, unspecified; Y92.89 Other specified places as the place of occurrence of the external cause; Y99.0 Civilian activity done for income or pay; Z79.899 Other long term (current) drug therapy
CPT/HCPCS: 36415; 70450; 70486; 80053; 85025; 85610; 99284; 99285; J7030; S1016